=== PATIENT | female | born 1980 | race Caucasian/White ===

== ENCOUNTER 2017-01-10 09:47 | Emergency (ER) | payer BC, OTHER ==
[2017-01-10 09:53] VITALS: BP 122/84; BMI 21.8
--- NOTE | 2017-01-10 10:14 | DR.EXTPAIN ---
HPI - Time seen Time seen: 10:15 - PCP Primary Care Physician: JULIO CÉSAR - HPI Comment HPI Comment: INCREASING PAIN AND SWELLING. PROBLEM BEARING WEIGHT. PREVIOUS INJURY SAME ANKLE. - Complaint/Symptoms Chief Complaint Doctor Comments: INJURED LEFT ANKLE 3 DAYS AGO. Chief Complaint:: PT. INJURED HER LEFT ANKLE ON THE WHILE TRAINING AT [employer] FOR HER JOB. PT. STATES SHE ROLLED HER ANKLE. - Nurses notes reviewed Nurses Notes Review: Yes - Source History Provided: Patient - Mode of arrival Mode of Arrival: Ambulatory - Timing Onset of Chief Complaint: 01/07/17 - Context History of: None - Associated signs and symptoms Associated Signs and Symptoms: Pain, Swelling, Bruising PMH - PMH Past Medical History: Yes Past Medical History: Hypothyroidism Past Surgical History: Yes Surgical History: Hysterectomy, Ortho Surgery Past Surgical History Comment: LEFT ANKLE - Family History History of Family Medical Conditions: Yes Family Medical History: Hypertension - Social History Does patient currently use any type of tobacco product: Yes Have you used tobacco products in the last 12 months: Yes Type of Tobacco Use: Cigarettes Does any household member use tobacco: No Alcohol Use: None Do you use any recreational Drugs:: No Lives With: Spouse Lives Where: Home - infectious screening In the last 2 months have you had wt loss of >10#?: NO Have you had fever, night sweats or hemotysis?: No Have you traveled outside the country in the last 6 months?: No Isolation: Standard ROS - Review of Systems Constitutional: No Symptoms Reported Eyes: No Symptoms Reported ENTM: No Symptoms Reported Respiratoy: No Symptoms Reported Cardiovascular: No Symptoms Reported Gastrointestinal/Abdominal: No Symptoms Reported Genitourinary: No Symptoms Reported Neurological: No Symptoms Reported Musculoskeletal: Left, Ankle, Foot Integumentary: No Symptoms Reported Hematologic/Lymphatic: No Symptoms Reported Endocrine: No Symptoms Reported All Other Systems: Reviewed and Negative PE - Vital Signs Vitals: Temperature 97.9 F Pulse Rate 86 Respiratory Rate 17 Blood Pressure 122/84 O2 Sat by Pulse Oximetry 99 - General Limitations: No Limitations General Appearance: Alert - Head Head Exam: Normal Inspection - Eyes Eye exam: Normal Appearance - ENT ENT Exam: Normal External Ear Exam - Neck Neck Exam: Normal Inspection - Chest Chest Inspection: Symmetric Chest Wall Rise - Respiratory Respiratory Exam: Normal Lung Sounds Bilat Respiratory Exam: Bilateral Clear to Auscultation - Cardiovascular Cardiovascular Exam: Regular Rate, Normal Rhythm, Normal Heart Sounds - Abdominal Exam Abdominal Exam: Normal Inspection - Extremities Extremities Exam: Tenderness ( LT ANKLE AND [employer]CH[employer]IC.), Joint Swelling (LT ANKLE) - Back Back Exam: Normal Inspection - Neurological Neurological Exam: Alert, Oriented X3 - Psychiatric Psychiatric Exam: Normal Affect, Normal Mood MDM - Differential Diagnosis Differential Diagnosis: Contusion, Fracture, Sprain Course - Treatment Treatment: SEE ORDERS. ANKLE SPINT PLACE IN ED. - Education/Counseling Education/Counseling: Patient, Family, Education Educated On: Diagnosis, Needs for Follow Up ROR - Labs Reviewed Laboratory: Non-DOT Drug Screen Collected 01/10/17 11:50 - XRAY XRAY Interpreted by: Radiologist XRAY Findings: REEPORT DISCUSS WITH PATIENT. - Diagnosis Discharge Problem: Left ankle sprain Qualifiers: Encounter type: initial encounter Involved ligament of ankle: unspecified ligament Qualified Code(s): S93.402A - Sprain of unspecified ligament of left ankle, initial encounter Contusion of left foot Qualifiers: Encounter type: initial encounter Qualified Code(s): S90.32XA - Contusion of left foot, initial encounter - Discharge Plan Disposition: 01 HOME, SELF-CARE Condition: Stable Prescriptions: Ibuprofen [MOTRIN TAB 600 MG *] 600 mg PO TID PRN #20 tab PRN Reason: Pain/Inflammation Tramadol HCl 50 mg PO Q8H PRN #15 tab PRN Reason: Pain - Follow ups/Referrals Follow ups/Referrals: Albino Ruiz [Primary Care Provider] - 3 days PRIMO APONTE [STAFF PHYSICIAN] - 3 days - Instructions Instructions: Ankle Sprain, [id number] Additional Instructions: RETURN TO ED IF WORSE.
--- NOTE | 2017-01-10 11:52 | RAD ---
History: Left ankle pain Study: Left ankle three views Findings: No fracture or dislocation of the left ankle was seen it. Mild soft tissue swelling is see n laterally. Postoperative changes are seen with bone anchors within the lateral malleolus and later al talus. The ankle mortise is maintained. The subtalar joint appears intact. Impression: 1. Mild soft tissue swelling about the lateral malleolus. No fracture or displacement is seen. 2. Postoperative changes as noted. Reported By:
== END 2017-01-10 11:48 | disposition home or self-care (01) ==
LOC: ER 09:52
DX: S93.402A Sprain of unspecified ligament of left ankle, initial encounter (principal); S90.32XA Contusion of left foot, initial encounter; Y33.XXXA Other specified events, undetermined intent, initial encounter; Y92.69 Other specified industrial and construction area as the place of occurrence of the external cause
CPT/HCPCS: 73610; 99000; 99282